=== PATIENT | female | born 1995 | race Caucasian/White ===

== ENCOUNTER 2024-07-02 14:15 | Inpatient (IN) ==
--- NOTE | 2024-07-02 14:26 | History & Physical Report ---
Date of Service July 02, 2024 Assessment & Plan (1) Amniotic fluid leaking: Plan: 28 yo female currently at 39 WGA who is here for Leaking on and off since Monday. No contractions so far. Plan: Admission in L and D. NST: Cat 1, without contraction. Plan for Cytotec IOL per Dr. Riojas. IOL explained to patient; agrees with this plan. History of Present Illness Chief Complaint: Leaking on and off since Monday. Primary Care Provider: Antony Medina DO Patient is a 28 yo female currently at 39 WGA who is here for Leaking. ANC check today, +ve pooling. Any RFs: Mild pyelectasis 7.8 mm Deep Vertical Pocket: 11.2cm - Mild Polyhydramnios( ) No Contractions so far ; movement present; +ve fluid loss External FHT and external uterine monitors used; category 1 tracing; normal FHT variability Had regular appointments with OB. Labs: Blood type: A pos Antibody screen Neg Hgb: 12 ( 05/14) Plt: 279 K( 12/12) Rubella: Immune VDRL/RPR: NR Gonorrhea: NR Chlamydia: NR HIV: NR HbSAg: NR GBS: Neg Other screens: cff-DNA/ CF/ SMA: Not done Allergies Allergy/AdvReac Type Severity Reaction Status Date / Time No Known Drug Allergies Allergy Verified 07/02/24 12:52 Home Medications Medication Instructions Recorded Confirmed Type vits no.124-ferrous fum 1 tab PO DAILY 07/02/24 07/02/24 History 27 mg iron-folic acid 800 mcg tablet ( Vitamin) Patient History Medical History Varicella vaccination No active medical problems Surgical History S/P wisdom tooth extraction Family History Denies family history of Ovarian cancer Prostate cancer Myocardial infarction Breast cancer Lung cancer Colorectal cancer Social History Smoking Status: Never smoker Second Hand Exposure: No; Do You Dip or Chew Tobacco: No; Hx Alcohol Use: No Hx Substance Use: No Preferred Language: Romansh Communication Ability: Effective Visual Impairment: No Limitations Hearing Ability: Normal 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 Beliefs That Will Affect Care: None marital status: marital status details: Stanton Duran (30) [phone] Current Living Situation: Spouse Current Living Situation Comment: Lucas- and Dog current occupational status: employed current occupation: [id number] How many Children do You have: 0 Other Information That Helps Us Care for You: No Feels Safe at Home: Yes Safety Concerns: Feels Safe At This Time Childhood Exposure to Second-Hand Smoke: No Diet: regular Diet Comment: well balanced caffeine: Yes (1 cup of tea daily ) during the past year weight has: remained stable Dental Care, Regularly: Yes Physical Activity Frequency: 5-6 Times per Week Seatbelt Use: always Sunscreen Use: Yes Assistive Devices: None Review of Systems Denies fever, chills, sweats. Denies SOB, difficulty breathing, chest pain, palpitations, and chest pressure. Denies breast pain. Denies dysuria. Denies headache or changes in vision. Physical Exam Physical Exam: General: Alert and oriented. No acute distress; Vitals: Stable CV: Regular rate and rhythm. No murmurs. Respiratory: CTA bilaterally. No rhonchi, wheezes, or crackles. No increased work of breathing. Abdomen: Gravid; Soft, nontender upon palpation Pelvic: Dilated 1cm; Effacement: 50%; Station-2 per at office around 13:00 Lower extremities: Mild LE edema. No deep calf pain. Supervising Physician Co-Signing Physician Notes Resident Physician Supervision Note: I interviewed and examined the patient. Agree with findings and plan as documented in the note. Any exceptions or clarifications are listed here: Pt seen by me at 8pm see subsequent note. Documented By: Rae Riojas MD, FACOG Resident Activity Tracking Resident Involvement: Resident Care Provided Care Provided: OB Delivery
[2024-07-02] MEDS ORDERED: LIDOCAINE 1% LOCAL 20 ML VIAL INFIL PRN (14:45)
[2024-07-02] MEDS ORDERED: OXYTOCIN 30 UNITS/NSS 30 UNITS/500 ML BAG IV PRN (14:45)
[2024-07-02 15:36] LABS: Hematocrit (blood only) 36.7 % (37.0-47.0); Hemoglobin 12.3 g/dl (12.0-16.0); Mean Corpuscular Hemoglobin 30.8 pg (25.0-34.0); Mean Corpuscular Hgb Conc 33.5 g/dL (32.0-36.0); Mean Corpuscular Volume 91.8 fL (80.0-100.0); Mean Platelet Volume 9.3 fL (9.4-12.4); Platelet Count 278 K/uL (130-400); RDW Standard Deviation 43.2 fL (36.4-46.3); White Blood Count 10.11 K/ul (4.8-10.8)
[2024-07-02] MEDS: LACTATED RINGER'S 1,000 ML IV PRN (15:58)
[2024-07-02] MEDS: miSOPROStoL 50 MCG TAB PO STA (15:58)
--- NOTE | 2024-07-02 20:14 | Labor Progress Brief Note ---
Date of Service July 02, 2024 Subjective pt feeling some ctx. notes brown leaking. was seen in office with confirmed prom. cytotec at about 4pm due to unfavorable cx. Assessment & Plan (1) 39 weeks gestation of : (2) PROM (premature rupture of membranes): (3) Polyhydramnios: Plan arom will help cephalic sit against cx. nurse advised pt needs to reexamined before being upright. will start pitocin. fhts categ 1. explained to couple must have had a high leak as large gush with arom and cephalic seemingly floating. will confirm cephalic with u/s. Physical Exam Constitutional: WD/WN, vitals as above Genitourinary: Manual OB Exam: + cervical dilation (1+), + cervical effacement (75%), + station high and + amniotic fluid (AROM) clear (large gush. ) OB Exam Monitor Tracing: + external FHT monitor used, + external uterine monitor used (q2-4), + category I and + normal FHT variability Results & Data Vital Signs (Past 12 Hours) Vital Signs Temp Pulse Resp BP 07/02/24 18:59 98.2 F 76 16 122/76 07/02/24 18:14 18 07/02/24 18:14 98.2 F 18 07/02/24 16:13 74 120/76 07/02/24 14:25 98.4 F 15 07/02/24 14:23 82 121/79 Coding Level of Care Code None Diagnoses 39 weeks gestation of Z3A.39 PROM (premature rupture of membranes) O42.90 Polyhydramnios O40.9XX0
[2024-07-02] MEDS ORDERED: BUTORPHANOL TARTRATE 1 MG/ML VIAL IV PRN (20:17)
[2024-07-02] MEDS: OXYTOCIN 30 UNITS/NSS 30 UNITS/500 ML BAG IV PRN (21:52)
[2024-07-02] MEDS ORDERED: ePHEDrine sulfate 50 MG/ML AMP ONE (22:27)
[2024-07-02] MEDS ORDERED: NALOXONE HCL 0.4 MG/1 ML VIAL/CARP IV PRN (23:07)
[2024-07-02] MEDS ORDERED: NALBUPHINE HCL INJ 10 MG/ML AMP IV PRN (23:07)
[2024-07-02] MEDS ORDERED: LIDOCAINE 2% MPF LOCAL 5 ML VIAL EPI PRN (23:07)
[2024-07-02] MEDS ORDERED: SODIUM CHLORIDE 0.9% PF INJ 10 ML VIAL EPI PRN (23:07)
[2024-07-02] MEDS ORDERED: ROPIVACAINE 0.5% PF 5 MG/ML 20 ML VIAL EPI PRN (23:07)
[2024-07-02] MEDS ORDERED: BUPIVACAINE 0.25% PF 30 ML VIAL EPI PRN (23:07)
[2024-07-02] MEDS ORDERED: fentaNYL citrate PF 100 MCG/2 ML VIAL EPI PRN (23:07)
[2024-07-02] MEDS ORDERED: diphenhydrAMINE 50 MG/ML VIAL IV PRN (23:07)
[2024-07-02] MEDS ORDERED: ePHEDrine sulfate 50 MG/ML AMP IV PRN (23:07)
[2024-07-02] MEDS ORDERED: NALOXONE HCL 1 MG in SODIUM CHLORIDE 0.9% 1,000 ML IV PRN (23:07)
--- NOTE | 2024-07-02 23:07 | Anesthesiology Consultation ---
Date of Service July 02, 2024 Assessment & Plan Chart Review Chart Review: Acceptable Risk for Labor Epidural Consults Requested none History Height/Weight Height: 5 ft 7 in Weight: 86.183 kg Allergies Allergy/AdvReac Type Severity Reaction Status Date / Time No Known Drug Allergies Allergy Verified 07/02/24 12:52 Medications Home Medications Medication Instructions Recorded Confirmed Last Taken vits no.124-ferrous fum 1 tab PO DAILY 07/02/24 07/02/24 07/02/24 27 mg iron-folic acid 800 mcg tablet ( Vitamin) Active Medications Generic Name Dose Route Start Last Admin Trade Name Freq PRN Reason Stop Dose Admin Lactated Ringer's 1,000 mls @ 125 mls/hr 07/02/24 14:45 07/02/24 23:02 Lr IV 07/03/24 14:44 125 mls/hr .Q8H PRN Infusion L&D Protocol Protocol Oxytocin 30 units in 500 mls @ 3 mls/hr 07/02/24 20:17 07/02/24 22:22 Pitocin 30 Units/Nss IV 07/04/24 20:16 0.18 units/hr .Q24H PRN 3 mls/hr Labor Induction/Augmentation Titration Protocol 0.18 UNITS/HR Past Medical History Medical History Varicella vaccination No active medical problems Past Family History Family History Denies family history of Ovarian cancer Prostate cancer Myocardial infarction Breast cancer Lung cancer Colorectal cancer Past Surgical History Surgical History S/P wisdom tooth extraction Social History Smoking Status: Never smoker Do You Dip or Chew Tobacco: No Hx Alcohol Use: No Hx Substance Use: No Physical Exam Vital Signs Last Vital Signs Temp 36.7 C 07/02/24 21:28 Pulse 69 07/02/24 23:02 Resp 16 07/02/24 18:59 BP 117/75 07/02/24 22:58 Pulse Ox 100 07/02/24 23:02 Testing Laboratory Results 07/02/24 15:18
[2024-07-02] MEDS: LIDOCAINE 2%/EPINEPHRINE 1:200,000 20 ML PF ONE (23:31)
[2024-07-02] MEDS: fentANYL 2 MCG/ML BUPIVacaine 0.125%-NSS 100ML BAG ONE (23:31)
[2024-07-02] MEDS: SODIUM CHLORIDE 0.9% PF INJ 10 ML VIAL ONE (23:32)
[2024-07-02] MEDS: BUPIVACAINE 0.25% PF 30 ML VIAL EPI STA (23:32)
[2024-07-02] MEDS: BUPIVACAINE 0.25% PF 30 ML VIAL ONE (23:32)
[2024-07-02] MEDS: fentaNYL citrate PF 100 MCG/2 ML VIAL ONE (23:32)
[2024-07-02] MEDS: LIDOCAINE 2%/EPINEPHRINE 1:200,000 20 ML PF EPI STA (23:32)
[2024-07-02] MEDS: SODIUM CHLORIDE 0.9% PF INJ 10 ML VIAL EPI STA (23:32)
[2024-07-02] MEDS: fentaNYL citrate PF 100 MCG/2 ML VIAL EPI STA (23:32)
--- NOTE | 2024-07-02 23:47 | Labor Progress Brief Note ---
Date of Service July 02, 2024 Subjective now comfortable with epidural Assessment & Plan (1) 39 weeks gestation of : (2) PROM (premature rupture of membranes): (3) Polyhydramnios: Plan will cont with pitocin. fhts cated 1. Physical Exam Constitutional: WD/WN, vitals as above Genitourinary: Manual OB Exam: + cervical dilation (2-3 cm), + cervical effacement 80% and + station -2 OB Exam Monitor Tracing: + external FHT monitor used, + external uterine monitor used (q2-3), + category I and + normal FHT variability Results & Data Vital Signs (Past 12 Hours) Vital Signs Temp Pulse Resp BP Pulse Ox 07/02/24 23:44 78 100/59 L 07/02/24 23:43 86 97 07/02/24 23:38 77 97/53 L 97 07/02/24 23:36 83 106/61 07/02/24 23:35 16 07/02/24 23:35 98.1 F 16 07/02/24 23:34 73 101/54 L 07/02/24 23:33 79 97 07/02/24 23:32 73 107/52 L 07/02/24 23:30 73 120/60 07/02/24 23:28 80 100 07/02/24 23:23 83 100 07/02/24 23:18 80 100 07/02/24 23:13 86 100 07/02/24 23:07 68 100 07/02/24 23:02 69 100 07/02/24 22:58 68 117/75 07/02/24 22:57 74 99 07/02/24 21:57 65 112/71 07/02/24 21:28 98.1 F 07/02/24 18:59 98.2 F 76 16 122/76 07/02/24 18:14 18 07/02/24 18:14 98.2 F 18 07/02/24 16:13 74 120/76 07/02/24 14:25 98.4 F 15 07/02/24 14:23 82 121/79 Coding Level of Care Code None Diagnoses 39 weeks gestation of Z3A.39 PROM (premature rupture of membranes) O42.90 Polyhydramnios O40.9XX0
[2024-07-03] MEDS: fentANYL 2 MCG/ML BUPIVacaine 0.125%-NSS 100ML BAG EPI PRN (06:44)
--- NOTE | 2024-07-03 08:06 | Labor Progress Brief Note ---
Date of Service July 03, 2024 Subjective feeling pain on right side Assessment & Plan (1) 39 weeks gestation of : (2) PROM (premature rupture of membranes): (3) Polyhydramnios: Plan will begin 2nd stage. fhts categ 1. Physical Exam Constitutional: WD/WN, vitals as above Genitourinary: Manual OB Exam: + cervical dilation 10 cm, + cervical effacement 100% and + station + 2 OB Exam Monitor Tracing: + external FHT monitor used, + external uterine monitor used, + category I and + normal FHT variability Results & Data Vital Signs (Past 12 Hours) Vital Signs Temp Pulse Resp BP Pulse Ox 07/03/24 08:03 87 100 07/03/24 07:58 86 100 07/03/24 07:54 77 132/75 07/03/24 07:53 85 100 07/03/24 07:48 77 100 07/03/24 07:43 77 100 07/03/24 07:39 75 131/75 07/03/24 07:38 75 100 07/03/24 07:33 74 100 07/03/24 07:28 81 99 07/03/24 07:25 72 131/74 07/03/24 07:23 81 99 07/03/24 07:18 80 99 07/03/24 07:13 82 100 07/03/24 07:11 81 126/78 07/03/24 07:08 77 100 07/03/24 07:05 98.2 F 16 07/03/24 07:05 98.2 F 07/03/24 07:03 84 99 07/03/24 06:58 79 100 07/03/24 06:54 68 139/75 07/03/24 06:53 78 100 07/03/24 06:48 78 99 07/03/24 06:43 75 99 07/03/24 06:40 76 132/72 07/03/24 06:39 88 94 07/03/24 06:38 79 100 07/03/24 06:33 69 99 07/03/24 06:28 76 100 07/03/24 06:24 70 107/57 L 07/03/24 06:23 77 100 07/03/24 06:18 86 99 07/03/24 06:13 69 98 07/03/24 06:10 69 99/56 L 07/03/24 06:08 79 99 07/03/24 06:03 66 97 07/03/24 05:58 71 98 07/03/24 05:55 62 101/60 07/03/24 05:53 75 99 07/03/24 05:48 78 99 07/03/24 05:43 65 98 07/03/24 05:41 66 101/59 L 07/03/24 05:38 65 98 07/03/24 05:33 74 99 07/03/24 05:28 70 98 07/03/24 05:24 73 128/82 07/03/24 05:23 75 99 07/03/24 05:19 16 07/03/24 05:19 97.7 F 16 07/03/24 05:18 78 97 07/03/24 05:13 81 99 07/03/24 05:10 73 131/76 07/03/24 05:08 79 99 07/03/24 05:03 73 100 07/03/24 04:58 66 99 07/03/24 04:55 68 107/58 L 07/03/24 04:53 69 99 07/03/24 04:48 69 99 07/03/24 04:43 76 100 07/03/24 04:39 69 97/56 L 07/03/24 04:38 74 99 07/03/24 04:33 71 99 07/03/24 04:28 76 99 07/03/24 04:24 76 94/50 L 07/03/24 04:23 73 98 07/03/24 04:18 70 99 07/03/24 04:13 76 99 07/03/24 04:11 75 108/58 L 07/03/24 04:08 81 99 07/03/24 04:03 79 99 07/03/24 03:58 75 98 07/03/24 03:54 82 94/55 L 07/03/24 03:53 74 99 07/03/24 03:48 80 100 07/03/24 03:43 76 100 07/03/24 03:40 88 114/74 07/03/24 03:38 80 99 07/03/24 03:33 82 99 07/03/24 03:28 74 100 07/03/24 03:24 78 121/72 07/03/24 03:23 81 100 07/03/24 03:18 82 100 07/03/24 03:16 18 07/03/24 03:16 97.7 F 18 07/03/24 03:13 81 100 07/03/24 03:10 69 118/69 07/03/24 03:08 83 100 07/03/24 03:03 78 99 07/03/24 02:58 87 100 07/03/24 02:55 75 118/78 07/03/24 02:53 76 99 07/03/24 02:48 81 100 07/03/24 02:43 76 99 07/03/24 02:39 73 103/63 07/03/24 02:38 78 99 07/03/24 02:33 75 97 07/03/24 02:28 86 97 07/03/24 02:24 76 109/66 07/03/24 02:23 74 97 07/03/24 02:18 81 98 07/03/24 02:13 74 99 07/03/24 02:09 77 108/60 07/03/24 02:08 75 98 07/03/24 02:03 77 98 07/03/24 01:58 81 98 07/03/24 01:56 74 116/67 07/03/24 01:53 82 98 07/03/24 01:48 74 98 07/03/24 01:43 75 97 07/03/24 01:39 80 112/70 07/03/24 01:38 81 98 07/03/24 01:33 79 99 07/03/24 01:32 97.7 F 07/03/24 01:28 77 98 07/03/24 01:25 71 109/72 07/03/24 01:23 75 99 07/03/24 01:18 72 98 07/03/24 01:13 61 98 07/03/24 01:09 70 106/59 L 07/03/24 01:08 63 98 07/03/24 01:03 67 98 07/03/24 00:58 65 97 07/03/24 00:54 65 108/57 L 07/03/24 00:53 63 97 07/03/24 00:48 69 97 07/03/24 00:43 72 98 07/03/24 00:38 71 108/59 L 98 07/03/24 00:36 77 88/51 L 07/03/24 00:33 89 98 07/03/24 00:29 77 110/59 L 07/03/24 00:28 78 97 07/03/24 00:26 80 110/60 07/03/24 00:23 82 97 07/03/24 00:20 74 113/64 07/03/24 00:18 76 97 07/03/24 00:14 99 H 113/68 07/03/24 00:13 90 98 07/03/24 00:10 80 112/74 07/03/24 00:08 102 H 97 07/03/24 00:04 93 H 114/64 07/03/24 00:03 82 97 07/03/24 00:00 89 107/61 07/02/24 23:58 79 97 07/02/24 23:54 81 97/56 L 07/02/24 23:53 86 97 07/02/24 23:51 86 97/55 L 07/02/24 23:48 87 97 07/02/24 23:45 14 07/02/24 23:45 14 07/02/24 23:44 78 100/59 L 07/02/24 23:43 86 97 07/02/24 23:38 77 97/53 L 97 07/02/24 23:36 83 106/61 07/02/24 23:35 16 07/02/24 23:35 98.1 F 16 07/02/24 23:34 73 101/54 L 07/02/24 23:33 79 97 07/02/24 23:32 73 107/52 L 07/02/24 23:30 73 120/60 07/02/24 23:28 80 100 07/02/24 23:23 83 100 07/02/24 23:18 80 100 07/02/24 23:13 86 100 07/02/24 23:07 68 100 07/02/24 23:02 69 100 07/02/24 22:58 68 117/75 07/02/24 22:57 74 99 07/02/24 21:57 65 112/71 07/02/24 21:28 98.1 F Coding Level of Care Code None Diagnoses 39 weeks gestation of Z3A.39 PROM (premature rupture of membranes) O42.90 Polyhydramnios O40.9XX0
[2024-07-03] MEDS ORDERED: DIPHTHER/TETAN/PERTUS Vaccine (Tdap, Adol/Adult) 0.5mL IM ONE (08:59)
[2024-07-03] MEDS ORDERED: ACETAMINOPHEN 325 MG TAB PO PRN (08:59)
[2024-07-03] MEDS ORDERED: OXYTOCIN 30 UNITS/NSS 30 UNITS/500 ML BAG IV PRN (08:59)
[2024-07-03] MEDS ORDERED: HYDROCORTISONE ACETATE 25 MG SUPP PR PRN (08:59)
[2024-07-03] MEDS ORDERED: bisacodyL 10 MG SUPP PR PRN (08:59)
--- NOTE | 2024-07-03 08:59 | Delivery Summary ---
Vaginal Delivery Summary Date of Service July 03, 2024 Vaginal Delivery Summary [facility] PREOPERATIVE DIAGNOSIS: 1. Single intrauterine at 39 3/7 wga 2. Prolonged rupture of membranes 3. Polyhydramios 4. Mild pyelectasis POSTOPERATIVE DIAGNOSIS: 1. Single intrauterine at 39 3/7 wga 2. Prolonged rupture of membranes 3. Polyhydramios 4. Mild pyelectasis 5. Delivered PROCEDURE: 1. Normal spontaneous vaginal delivery. SURGEON: Brandy Hayden MD ANESTHESIA: Epidural. QUANTITATIVE BLOOD LOSS: 24 mL FLUIDS: Continuous LR. URINE OUTPUT: 150cc by straight cath after procedure COMPLICATIONS: None. CONDITION: Stable. INDICATIONS: 28 yo G1 at 39 3/7 wga presented for evaluation due to LOF and found to be SROM since sat evening though it was unclear initially. She was given cytotec to start and underwent arom of forebag. She was started on pitocin and received an epidural. She progressed to complete and desired to push FINDINGS: A viable male , weight pending with Apgars of 8 and 9 at 1 and 5 minutes respectively. SPECIMEN: Cord blood OPERATIVE REPORT: The patient progressed to 10 cm, 100% effaced and +2 station, pushed over intact perineum with anesthesia to deliver a viable male infant, weight and Apgars as above. Head of delivered in CATHLEEN position. Tight nuchal cord could not be reduced so delivered through. Body and shoulders were delivered without difficulty. was delivered to maternal abdomen and nursing staff. Delayed cord clamping was performed for 60 seconds. Cord was clamped and cut. Cord blood was obtained. Placenta delivered spontaneously intact with 3-vessel cord. IV oxytocin and fundal massage were given for excellent hemostasis. Vagina, cervix, perineum, and placenta were inspected. A periclitoral laceration was repaired in interrupted stitches. A separate hemostatic left vaginal abrasion did not need repaired. There was excellent hemostasis. Sponge and needle counts correct x2. No sponges were left behind. Mother and stable in immediate period. [facility] Vaginal Delivery Charge Vaginal Delivery Codes: 98309 global code for the antepartum, delivery, and post- Delivery Type Details: [facility]
--- NOTE | 2024-07-03 09:09 | Anesthesia Procedure Note ---
Date of Service July 03, 2024 Anesthesia Post Epidural Note Vital Signs Vital Signs: Temp Pulse Resp BP Pulse Ox 36.7 C 79 16 132/64 93 07/03/24 08:45 07/03/24 08:54 07/03/24 09:00 07/03/24 08:54 07/03/24 08:28 Pain Intensity Back: Pain Intensity: 4 Notes Mental Status: alert / awake / arousable Nausea / Vomiting: adequately controlled Pain: adequately controlled Airway Patency, RR, SpO2: stable & adequate BP & HR: stable & adequate Hydration State: stable & adequate Neuraxial Anesthesia: was administered and sensory block is resolving Anesthetic Complications: no major complications apparent and Pt Satisfied with anesthetic care Epidural: Removed without complications and With tip intact
[2024-07-03] MEDS: IBUPROFEN 600 MG TAB PO PRN (12:11)
[2024-07-03] MEDS: BENZOCAINE 20% SPRY 85 APPLN/85 GM CAN EXT PRN (12:13)
[2024-07-03] MEDS: DOCUSATE SODIUM 100 MG CAP PO SCH (20:55)
--- NOTE | 2024-07-04 06:22 | Obstetrical Progress Note ---
Date of Service July 04, 2024 Assessment & Plan (1) Vaginal delivery: Plan: 1st PP Day following Induced VD in 30 years P1 at 38 week POG. Both mom and baby doing well. Can discharge today as per protocol, however Nevaeh wants to stay. Will go home tomorrow. Admission and Anticipated Discharge Date Admission Date: July 02, 2024 Supervising Physician Co-Signing Physician Notes Resident Physician Supervision Note: I interviewed and examined the patient. Discussed with Dr. Cantu and agree with findings and plan as documented in the note. Any exceptions or clarifications are listed here: PP1 s/p , doing well. Continue routine care Documented By: Brandy Hayden MD Subjective 1st PP Day following Induced VD in 30 years P1 at 38 week POG. No active complains Both mom and baby doing well. Pain: Mild, intermittent Lochia: Moderate Diet: Regular Ob diet Gas: Not aware of passing, but no abdominal distension Peeing: Normal, no bladder distension Ambulation: Normally Review of Systems Review of Systems: No SOB, chest pain, leg pain No dizziness, headache, palpitation No Blurring of vision , fever Physical Exam Physical Exam: General: Alert and oriented. No acute distress. CVS: S1 S2+ No murmurs, regular rhythm. Respiratory: CTA bilaterally. No rhonchi, wheezes, or crackles. No increased work of breathing. Abdomen: Bowel sound +. Soft, nontender Uterus: Fundus firm and palpable few cm below the umbilicus. Lower extremities: No LE edema. No deep calf pain. Results & Data Vital Signs (Past 12 Hours) Vital Signs Temp Pulse Resp BP Pulse Ox O2 Del Method 07/04/24 03:50 36.3 C L 67 18 109/69 97 Room Air 07/03/24 23:50 36.7 C 80 16 102/63 98 Room Air 07/03/24 20:15 36.6 C 86 16 107/70 97 Room Air Resident Activity Tracking Resident Involvement: Resident Care Provided Care Provided: OB Delivery
[2024-07-04] MEDS: PRENATAL VITAMIN 1 TAB PO SCH (07:44)
[2024-07-04] MEDS: FERROUS SULFATE 325 MG TAB PO SCH (07:44)
[2024-07-04] MEDS: bisacodyL 5 MG TABEC PO SCH (20:04)
[2024-07-04 23:06] VITALS: PULSE 71
--- NOTE | 2024-07-05 07:10 | Obstetrical Progress Note ---
Date of Service July 05, 2024 Assessment & Plan (1) Vaginal delivery: Plan: 2nd PP Day following Induced VD in 30 years P1 at 38 week POG. Both mom and baby doing well. Discharge today as per protocol, Nevaeh is ready. Admission and Anticipated Discharge Date Admission Date: July 02, 2024 Supervising Physician Co-Signing Physician Notes Resident Physician Supervision Note: I interviewed and examined the patient. Discussed with Dr. Cantu and agree with findings and plan as documented in the note. Any exceptions or clarifications are listed here: [ ] Documented By: Ginna Lantigua MD, FACOG Subjective 2nd PP Day following Induced VD in 30 years P1 at 38 week POG. No active complains today except tiredness and mild back pain. Both mom and baby doing well. Pain: Mild, intermittent Lochia: Moderate Diet: Regular Ob diet Peeing: Normal, no bladder distension Ambulation: Normally Review of Systems Review of Systems: No SOB, chest pain, leg pain No dizziness, headache, palpitation No Blurring of vision , fever Physical Exam Physical Exam: General: Alert and oriented. No acute distress. CVS: S1 S2+ No murmurs, regular rhythm. Respiratory: CTA bilaterally. No rhonchi, wheezes, or crackles. No increased work of breathing. Abdomen: Bowel sound +. Soft, nontender Uterus: Fundus firm and palpable few cm below the umbilicus. Lower extremities: No LE edema. No deep calf pain. Results & Data Vital Signs (Past 12 Hours) Vital Signs Temp Pulse Resp BP Pulse Ox O2 Del Method 07/04/24 23:05 36.5 C 71 16 110/67 97 Room Air Resident Activity Tracking Resident Involvement: Resident Care Provided Care Provided: OB Delivery
[2024-07-05 08:53] VITALS: BP 119/71; RESP 20; TEMP 97.5; O2SAT 98
--- NOTE | 2024-07-09 12:05 | Coding Query ---
CODING QUERY To promote full compliance with coding requirements relating to patient care, provider participation is requested in all cases of operations staff specialist security uncertainty. Please assist us with the question(s) below: Coding Question(s): Pt had a periclitoral laceration repaired after delivery. Please clarify degree of laceration for appropriate procedure coding. Physician's Response(s): THIS WAS NOT MY DELIVERY, DR SKELTON. Thank you Sherrill Felipe Principal Diagnosis: "that condition established after study, to be chiefly responsible for occasioning the admission of the patient to the hospital for care." Co-Existing Principal Diagnosis: "when two or more diagnoses equally meet the criteria for principal diagnosis as determined by the circumstances of admission, diagnostic work up, and/or therapy provided, and the Alphabetic Index, Tabular List, or another coding guideline does not provide sequencing direction, any one of the diagnoses may be sequenced first." "When the physician has documented what appears to be a current diagnosis in the body of the record, but has not included the diagnosis in the final diagnostic statement, the physician should be asked whether the diagnosis should be added." ([facility] 2 QTR90. p3-4) DMITRIY
--- NOTE | 2024-07-11 07:36 | Coding Query ---
CODING QUERY To promote full compliance with coding requirements relating to patient care, provider participation is requested in all cases of avionics mechanic uncertainty. Please assist us with the question(s) below: Coding Question(s): Pt had a periclitoral laceration repaired after delivery. Please clarify degree of laceration for appropriate procedure coding. Physician's Response(s): There is no degree associated with that location of laceration Thank you Sherrill Felipe Principal Diagnosis: "that condition established after study, to be chiefly responsible for occasioning the admission of the patient to the hospital for care." Co-Existing Principal Diagnosis: "when two or more diagnoses equally meet the criteria for principal diagnosis as determined by the circumstances of admission, diagnostic work up, and/or therapy provided, and the Alphabetic Index, Tabular List, or another coding guideline does not provide sequencing direction, any one of the diagnoses may be sequenced first." "When the physician has documented what appears to be a current diagnosis in the body of the record, but has not included the diagnosis in the final diagnostic statement, the physician should be asked whether the diagnosis should be added." ([facility] 2 QTR90. p3-4) DMITRIY
== END 2024-07-05 11:40 | disposition home or self-care (01) | DRG 807 ==
LOC: OPB 14:15 → 4S1 14:18 → 4E2 07-03 11:53